=== PATIENT | male | born 1980 | race Caucasian/White ===

== ENCOUNTER 2019-12-05 08:03 | Outpatient (CLI) | payer OTHER ==
--- NOTE | 2019-12-05 09:18 | MRI ---
EXAM: MRI of the brain without and with contrast HISTORY: Migraine headaches COMPARISON: None TECHNIQUE: Multiplanar multisequence MR images were obtained of the brain without and with IV contras t. FINDINGS: The brain demonstrates normal signal intensity on all obtained sequences. No restricted diffusion. No abnormal enhancement. No hydronephrosis. No extra-axial fluid collection or intracranial hemorrhage. The expected flow voids are present. Corpus callosum, pituitary, and craniocervical junction are within normal limits. The calvarium and overlying soft tissues are unremarkable. Mild mucosal thickening is seen in the paranasal sinuses. The mastoid air cells are well aerated. IMPRESSION: No evidence of acute intracranial abnormality.
== END 2019-12-05 08:04 | disposition home or self-care (01) ==
LOC: SCSMRI 08:03
PROVIDERS: ATTEND Psychiatry & Neurology Neurology
DX: S06.890A Other specified intracranial injury without loss of consciousness, initial encounter (principal)
CPT/HCPCS: 70553